=== PATIENT | female | born 1965 | race American Indian/Alaskan Native ===

== ENCOUNTER 2021-06-01 05:28 | Emergency (ER) | payer MEDICARE, OTHER ==
[2021-06-01 05:41] VITALS: BP 157/92
[2021-06-01] MEDS ORDERED: IBUPROFEN 800 MG TAB PO STA (09:39)
[2021-06-01] MEDS ORDERED: ACETAMINOPHEN 500 MG TAB PO STA (09:39)
--- NOTE | 2021-06-01 09:43 | Emergency Department Report ---
ED General Adult HPI - General Chief complaint: Animal Bite Stated complaint: INSECT BITE ON BUTTOCKS Time Seen by Provider: 06/01/21 07:50 Source: patient Mode of arrival: Ambulatory Limitations: No Limitations - History of Present Illness Initial comments: 55-year-old -Citizen Of [place] female patient with history of hypertension presents with complaints of possible bug bites to her left buttocks x2 days. Patient states while wearing pants and sitting on the sofa, she felt a sudden pinch on her buttocks and later developed a few bumps in the area. She states the bumps are very tender to touch and it is difficult to sit on her buttocks. She rates her pain as a 7/10 in severity and describes it as a burning and tingling type pain. No prodromal symptoms per patient. She also denies any fever/chills/sweats, swelling to the area, or drainage. - Related Data Previous Rx's Medication Instructions Recorded Last Taken Type Acetaminophen 1,000 mg PO TID PRN #30 capsule 06/01/21 Unknown Rx Ibuprofen [Motrin 800 MG tab] 800 mg PO Q8HR PRN #21 tablet 06/01/21 Unknown Rx Valacyclovir HCl [Valacyclovir] 1,000 mg PO TID 7 Days #21 tablet 06/01/21 Unknown Rx predniSONE 10 mg PO BID 3 Days #6 tab 06/01/21 Unknown Rx Allergies Allergy/AdvReac Type Severity Reaction Status Date / Time No Known Allergies Allergy Unverified 06/01/21 05:39 ED Review of Systems ROS: Stated complaint: INSECT BITE ON BUTTOCKS Other details as noted in HPI Constitutional: denies: chills, fever Musculoskeletal: denies: arthralgia Skin: rash. denies: change in color, pruritus Neurological: denies: numbness Hematological/Lymphatic: denies: swollen glands ED Past Medical Hx - Past Medical History Previous Medical History?: No - Surgical History Past Surgical History?: No - Social History Smoking Status: Never Smoker Substance Use Type: None - Medications Home Medications: Home Medications Medication Instructions Recorded Confirmed Last Taken Type Acetaminophen 1,000 mg PO TID PRN #30 capsule 06/01/21 Unknown Rx Ibuprofen [Motrin 800 MG tab] 800 mg PO Q8HR PRN #21 tablet 06/01/21 Unknown Rx Valacyclovir HCl [Valacyclovir] 1,000 mg PO TID 7 Days #21 tablet 06/01/21 Unknown Rx predniSONE 10 mg PO BID 3 Days #6 tab 06/01/21 Unknown Rx ED Physical Exam - General Limitations: No Limitations General appearance: alert, in no apparent distress, obese - Head Head exam: Present: atraumatic, normocephalic - Eye Eye exam: Present: normal appearance. Absent: scleral icterus - Respiratory Respiratory exam: Absent: respiratory distress - Cardiovascular Cardiovascular Exam: Present: regular rate - Extremities Exam Extremities exam: Present: full ROM - Neurological Exam Neurological exam: Present: alert, oriented X3 - Psychiatric Psychiatric exam: Present: normal affect, normal mood - Skin Skin exam: Present: warm, dry, intact, normal color, other (For papules noted to left lower buttocks without surrounding erythema, swelling, or drainage; area is significantly tender to light touch) ED Course Vital Signs 06/01/21 05:35 Temperature 98.7 F Pulse Rate 96 H Respiratory 16 Rate Blood Pressure 157/92 O2 Sat by Pulse 97 Oximetry ED Medical Decision Making - Medical Decision Making 55-year-old -Citizen Of [place] female patient with history of hypertension presents with complaints of possible bug bites to her left buttocks x2 days. Patient states while wearing pants and sitting on the sofa, she felt a sudden pinch on her buttocks and later developed a few bumps in the area. She states the bumps are very tender to touch and it is difficult to sit on her buttocks. She rates her pain as a 7/10 in severity and describes it as a burning and tingling type pain. No prodromal symptoms per patient. She also denies any fever/chills/sweats, swelling to the area, or drainage. 4 minimally erythemic papules that are very sensitive to light touch noted on exam without signs of cellulitis. Given history and physical, suspect shingles. She admits to chickenpox as a child. Will treat with valacyclovir. Recommend patient follows up with her primary care doctor in 3 to 5 days. Her vitals are within normal limits, she is well-appearing, she is stable for discharge home. Discussed signs and symptoms that should prompt immediate return to the emergency department in detail with patient who verbalizes understanding. Critical care attestation.: If time is entered above; I have spent that time in minutes in the direct care of this critically ill patient, excluding procedure time. ED Disposition Clinical Impression: Rash, Shingles Disposition: DC- TO HOME OR SELFCARE Is pt being admited?: No Condition: Stable Instructions: Shingles Prescriptions: Acetaminophen 1,000 mg PO TID PRN #30 capsule PRN Reason: pain Ibuprofen [Motrin 800 MG tab] 800 mg PO Q8HR PRN #21 tablet PRN Reason: pain predniSONE 10 mg PO BID 3 Days #6 tab Valacyclovir HCl [Valacyclovir] 1,000 mg PO TID 7 Days #21 tablet Referrals: MARTHA WOLFF [Other] - 3-5 Days
== END 2021-06-01 09:56 | disposition home or self-care (01) ==
LOC: ED 05:28
DX: B02.9 Zoster without complications (principal); R21 Rash and other nonspecific skin eruption; Z79.1 Long term (current) use of non-steroidal anti-inflammatories (NSAID); Z79.899 Other long term (current) drug therapy
CPT/HCPCS: 99282